=== PATIENT | male | born 1965 | race Caucasian/White ===

== ENCOUNTER 2016-11-07 09:21 | Day surgery (SDC) | payer OTHER ==
[2016-11-07] MEDS ORDERED: PROPOFOL 10 MG/ML VIAL IV ONE (14:00)
[2016-11-07] MEDS ORDERED: FENTANYL PF 100MCG/2ML VIAL IV ONE (14:00)
[2016-11-07] MEDS ORDERED: LIDOCAINE 2% MDV (20MG/ML) 20ML VIAL IV ONE (14:00)
--- NOTE | 2016-11-09 11:50 | Operative Note ---
DATE OF SURGERY: 11/07/2016 OPERATION: ESOPHAGOGASTRODUODENOSCOPY with multiple biopsies. INDICATION: Recurring knot-like epigastric pain. The cause for this is unclear. Episodic heartburn with occasional nocturnal heartburn. Rule out acid peptic disease. ANESTHESIA: Intravenous sedation was administered by the department of anesthesiology and included Diprivan titrated to effect. PROCEDURE: Following informed consent from this alert individual, including a discussion of the risks and benefits of the procedure and an opportunity for the patient to ask questions, the patient was in the left lateral decubitus position. The Olympus [id number] video endoscope was inserted into the esophagus without resistance. The proximal esophagus had a normal appearance with normal folds and distensibility. The mid esophagus likewise was free from changes. The distal esophageal segment demonstrated an irregular Z line extending approximately 1 cm to perhaps 1.5 cm in length. No ulcerations, erosions, or raised areas were noted. Biopsies from this area were taken. The stomach was then entered. The gastric fundus and pars media had a few gastric fundal polyps but no ulcerations or erosions noted. The antrum was evaluated circumferentially and was demonstrated a 7-8 mm linear ulcer in the posterior wall of the prepyloric antrum. There was gastritis noted in the antrum as well. Biopsies were taken from the area of ulceration and antrum to assess for Helicobacter pylori and check histology. The pylorus was patent. The duodenal bulb, sweep and descending duodenum were examined in a serial fashion and found to be normal. The instrument was then withdrawn back into the body of the stomach. Retroflexion accomplished following air insufflation failed to demonstrate additional changes. The endoscope was then straightened. Boys were taken from the gastric fundal polyps in addition to the separate gastric biopsies noted above. The instrument was then withdrawn. The patient tolerated the procedure well and was returned to the recovery area in stable condition. IMPRESSION: 1. Irregular Z line, biopsies taken. Rule out short-segment Garcia esophagus. 2. Multiple gastric fundal polyps, biopsies taken. 3. A 7-8 mm linear prepyloric antral gastric ulceration with associated gastritis, biopsies taken. RECOMMENDATION: The patient was given a prescription for omeprazole to be taken each morning. He was advised to avoid anti-inflammatory medications, which he had taken some of in the past in the form of Advil Sinus and Cold. He will have repeat endoscopy in approximately 2 months' time to confirm healing. Further recommendations may be forthcoming pending those results. Followup will also be with Dr. Chadwick Frias. As always, thank you for allowing me to participate in the care of your patient. CC: Dr. Rodriguez RODRIGUES
--- NOTE | 2016-11-09 11:50 | Operative Note ---
DATE OF SURGERY: 11/07/2016 OPERATION: COLONOSCOPY to the cecum with cold snare polypectomy x1 and cold biopsy forceps polypectomy x1. INDICATION: Colorectal cancer screening. ANESTHESIA: Intravenous sedation was administered by the department of anesthesiology and included Diprivan titrated to effect. PROCEDURE: Following informed consent from this alert individual including a discussion of the risks and benefits of the procedure and an opportunity for the patient to ask questions, the patient was in the left lateral decubitus position. A digital rectal examination was performed. No abnormalities were noted. Following this, the Olympus [id number] video colonoscope was inserted into the rectum without resistance. The rectal mucosa had a normal appearance with normal folds and distensibility. The colonoscope was advanced up through the colon to the level of the cecum without much difficulty. Throughout the bowel the mucosa appeared normal, the folds were normal, and the bowel was fairly well distensible. The cecum was well defined by noting the appendiceal orifice and ileocecal valve. Retroflexion in the cecum was endoscopically normal. From the base of the cecum, the colonoscope was then withdrawn. No abnormalities were detected until the sigmoid colon was reached. Within the sigmoid, there were 2 polyps noted. One was diminutive in size measuring 3 mm and was easily removed with biopsy forceps. The slightly larger polyp measuring 5 mm in size was removed with cold snare polypectomy. No other changes were appreciated. Retroflexion in the rectum was unremarkable. The endoscope was straightened and withdrawn. The patient tolerated the procedure well and was returned to the recovery area in stable condition. The colon preparation was good. IMPRESSION: Two sigmoid colon polyps as described above measuring 3 and 5 mm, respectively. Removed with biopsy forceps and cold snare polypectomy. RECOMMENDATIONS: Further recommendations forthcoming pending results of pathology obtained today. Followup will also be with Dr. Chadwick Frias. As always, thank you for allowing me to participate in the care of your patient. CC: Dr. Rodriguez RODRIGUES
== END 2016-11-07 12:15 | disposition home or self-care (01) ==
LOC: HOP 09:21
PROVIDERS: ATTEND Internal Medicine Gastroenterology
DX: Z12.11 Encounter for screening for malignant neoplasm of colon (principal); D12.5 Benign neoplasm of sigmoid colon; D13.1 Benign neoplasm of stomach; K25.9 Gastric ulcer, unspecified as acute or chronic, without hemorrhage or perforation; K29.70 Gastritis, unspecified, without bleeding; K31.89 Other diseases of stomach and duodenum; K21.0 Gastro-esophageal reflux disease with esophagitis; R10.13 Epigastric pain
CPT/HCPCS: 45385; 45380; 00810; J3010

== ENCOUNTER 2017-01-09 07:59 | Day surgery (SDC) | payer OTHER ==
[2017-01-09] MEDS ORDERED: PROPOFOL 10 MG/ML VIAL IV ONE (08:00)
[2017-01-09] MEDS ORDERED: LIDOCAINE 2% MDV (20MG/ML) 20ML VIAL IV ONE (08:00)
[2017-01-09] MEDS ORDERED: FENTANYL PF 100MCG/2ML VIAL IV ONE (08:00)
--- NOTE | 2017-01-09 13:30 | Operative Note ---
DATE OF SURGERY: 01/09/2017 OPERATION: ESOPHAGOGASTRODUODENOSCOPY with multiple biopsies. INDICATION: Previously noted antral gastric ulceration. The patient has been treated with proton pump inhibitor therapy and is returning at this time to assess healing. He also was diagnosed with Garcia's esophagus. ANESTHESIA: Intravenous sedation was administered by the department of anesthesiology and included Diprivan titrated to effect. PROCEDURE: Following informed consent from this alert individual, including a discussion of the risks and benefits of the procedure and an opportunity for the patient to ask questions, the patient was in the left lateral decubitus position. The Olympus [id number] video endoscope was inserted into the esophagus without resistance. The proximal esophagus had a normal appearance with normal folds and distensibility. The distal esophagus demonstrated short-segment Garcia's epithelium extending with 3 tongues approximately 1.5 cm in length. No ulcerations, erosions, or raised areas were noted. The stomach was entered and found to be unremarkable. Pylorus was patent. Duodenal bulb, sweep, and descending duodenum were examined in a serial fashion and found to be normal. The endoscope was then drawn back into the body of the stomach where retroflexion accomplished following air insufflation failed to demonstrate any changes. The endoscope was then straightened. The area of ulceration on the gastric antrum had completely healed. The endoscope was then drawn back to the distal esophagus where biopsies were obtained from the Garcia's epithelium to assess for changes. The endoscope was then further withdrawn and removed from the patient. He tolerated the procedure well and was returned to the recovery area in stable condition. IMPRESSION: 1. Healed prepyloric antral gastric ulceration. 2. A 1.5 cm Garcia's epithelium noted as described above - biopsies taken. RECOMMENDATION: The patient will continue on acid blockade therapy. Further recommendations will be forthcoming pending results of biopsy. Followup will be with Dr. Chadwick Frias as well. As always, thank you for allowing me to participate in the care of your patient. CC: Dr. Rodriguez RODRIGUES
== END 2017-01-09 09:56 | disposition home or self-care (01) ==
LOC: HOP 07:59
PROVIDERS: ATTEND Internal Medicine Gastroenterology
DX: K25.9 Gastric ulcer, unspecified as acute or chronic, without hemorrhage or perforation (principal); K22.70 Barrett's esophagus without dysplasia
CPT/HCPCS: 43235; 00740; J3010